=== PATIENT | female | born 1975 | race African-American/Black ===

== ENCOUNTER 2019-01-10 16:13 | Emergency (ER) | payer MEDICAID ==
[~2019-01-10] VITALS: Ht 165.1 cm; Wt 111.8 kg
[2019-01-10 16:24] VITALS: BP 161/95; Ht 165.1 cm; Wt 111.8 kg
[2019-01-10] MEDS ORDERED: FLUTICASONE PRO16 GM NASAL (18:45)
[2019-01-10] MEDS ORDERED: ZYRTEC10 MG PO (18:45)
== END 2019-01-10 19:12 | disposition home or self-care (01) ==
LOC: D.ER 16:13
DX: J30.9 Allergic rhinitis, unspecified (principal)